=== PATIENT | female | born 1985 | race Caucasian/White ===

== ENCOUNTER → 2020-07-20 08:49 | Outpatient (BNVA) | payer MEDICAID, SELFPAY | PROVIDERS: PCP Nurse Practitioner Family; Visit Provider Surgery | DX: K43.2 Incisional hernia without obstruction or gangrene (principal) | CPT/HCPCS: 99202 ==

== ENCOUNTER 2020-07-26 06:13 | Day surgery (SDC) | payer MEDICAID, SELFPAY ==
--- NOTE | 2020-07-25 13:04 | P.CONAN_ITS ---
Documented by User: Jen Mcgregor 07/25/20 13:04 HPI - Anesthesia Eval Consult details Narrative: 35yo F for Left Incisional Hernia Repair with Mesh [facility] Active Problems Active Problems: All Active Problems (Updated 07/20/20 @ 09:12 by Kunal Reynolds MD) Incisional hernia (Acute) Past Medical History Medical History Dyslipidemia Headache Thyroid nodule Surgical History Surgical History delivery delivered H/O umbilical hernia repair (10/29/18) History of hysterectomy Hx of cholecystectomy Hx of right inguinal hernia repair (05/26/18) Hx of tonsillectomy Thyroid mass Social History Social History Alcohol intake: current Alcohol intake frequency: holidays/special occasions only Smoking Status: Current every day smoker Cigarettes Per Day: 2 Use of substances other than those prescribed or required for medical reasons: No Advance Directives: No Advance Directives Information Provided: Yes Meds Allergies Allergy/AdvReac Type Severity Reaction Status Date / Time epinephrine [EPINEPHRINE] Allergy Intermediate RASH, Verified 07/26/20 06:24 hives, tremors morphine [MORPHINE] Allergy Intermediate RASH Verified 07/26/20 06:24 oxycodone Allergy Unknown hives, Verified 07/26/20 06:24 itchy throat Home Medications Medication Instructions Recorded Confirmed Last Taken Type No Known Home Meds 07/20/20 07/26/20 Unknown History Exam Exam Date and Time: July 25, 2020 1304 Assessment and Plan Assessment Anesthesia Assessment: Chart Reviewed Documented by User: Rashmi Adam 07/26/20 07:22 PMFSH Past Medical History Medical History Dyslipidemia Headache Thyroid nodule Surgical History Surgical History delivery delivered H/O umbilical hernia repair (10/29/18) History of hysterectomy Hx of cholecystectomy Hx of right inguinal hernia repair (05/26/18) Hx of tonsillectomy Thyroid mass Social History Social History Alcohol intake: current Alcohol intake frequency: holidays/special occasions only Smoking Status: Current every day smoker Cigarettes Per Day: 2 Use of substances other than those prescribed or required for medical reasons: No Advance Directives: No Advance Directives Information Provided: Yes Meds Allergies Allergy/AdvReac Type Severity Reaction Status Date / Time epinephrine [EPINEPHRINE] Allergy Intermediate RASH, Verified 07/26/20 06:24 hives, tremors morphine [MORPHINE] Allergy Intermediate RASH Verified 07/26/20 06:24 oxycodone Allergy Unknown hives, Verified 07/26/20 06:24 itchy throat Home Medications Medication Instructions Recorded Confirmed Last Taken Type No Known Home Meds 07/20/20 07/26/20 Unknown History Exam Airway Mallampati Class: II TM Dist: >3cm Neck ROM: Full Assessment and Plan Assessment Anesthesia Assessment: Anesthesia Plan Discussed and Chart Reviewed Final Anesthetic Review NPO: Yes ASA Class: II Final Preanesthetic Review: No Changes in Pt Med Stat, Meds/Allgs Chart Reviewed, Consent Obtained/Reviewed and Anes Risks/Benef Reviewed Patient Risk: Low Procedure Risk: Low Assessment/Block/Sedation in SS: Assess/Block/Sedation-SS Anesthetic Plan Anesthetic Plan: GA Disposition: Standard PACU
[2020-07-26] VITALS (13 sets, daily range): BP systolic 90–119; BP diastolic 53–86; PULSE 57–85; RESP 12–16; TEMP 36.1–36.4; O2SAT 95–99; BMI 29.9
[2020-07-26] MEDS: Lactated Ringers 1,000 ML 100 ML IVCONT (06:38)
--- NOTE | 2020-07-26 07:22 | MHC.SHP ---
Pre-Procedural Eval Section A The patient is an INPATIENT: No Changes since office visit: Yes Patient answered all questions; No Cold of Flu in the past 2 weeks, No New Medical Problems and No Changes in Medication The History & Physical has been completed within 30 days and I have reviewed it.: Yes Section B Chief Complaint: Incisional hernia Allergies: Allergies Allergy/AdvReac Type Severity Reaction Status Date / Time epinephrine [EPINEPHRINE] Allergy Intermediate RASH, Verified 07/26/20 06:24 hives, tremors morphine [MORPHINE] Allergy Intermediate RASH Verified 07/26/20 06:24 oxycodone Allergy Unknown hives, Verified 07/26/20 06:24 itchy throat Plan Diagnosis/Plan: Unchanged I have reviewed the history and physical and performed a pertinent physical examination on my patient. No changes have occurred unless specified.
--- NOTE | 2020-07-26 08:07 | P.OP_ITS ---
Operative Note Operative Note Date of Service: 07/26/20 Narrative: Preoperative diagnosis: Incisional hernia left lower quadrant Postoperative diagnosis: Endometrial implant left lower quadrant Procedure: Excision of endometrial implant left lower quadrant Surgeon: Kunal Reynolds MD [employer]ight: Emy Padilla PA-C Anesthesia: General LMA Indications for procedure: 35-year-old female presenting with a painful lump in the left lower quadrant just above her section incision. She has a previous history of a right lower quadrant incisional hernia in this is located in a mirror image. Operative findings: Hard mass located just above the muscle and fascia me asuring approximately 2.5 cm in diameter. Findings suggestive of a endometrial implant. Specimen: Abdominal wall mass left lower quadrant Estimated blood loss: 2 mL Complications: None Procedure details: Patient was brought to the OR placed in a supine position. After administering general anesthesia the patient's abdomen was prepped with ChloraPrep and draped in a sterile fashion. A surgical time-out was called the consent confirmed. Patient received preoperative antibiotics and Venodyne boots were in place. Local anesthesia consisting of 0.5% Sensorcaine without epinephrine was infiltrated in the left lower quadrant directly over the palpable mass. Transverse incision was then created measuring approximately 8 cm carried down through subcutaneous tissue up to the palpable mass. This was immediately determined to be abdominal wall mass rather than hernia. Electrocautery was then used to widely excise the mass to assure complete removal. The mass was then excised off the muscle fascia without opening the fascia. Specimen was then sent to pathology for further examination. The incision was then irrigated thoroughly with sterile water. This was then suctioned dry. Oumou's fascia and dermis reapproximated using interrupted 3-0 Polysorb sutures. Skin was then closed using a running subcuticular 4 0 Polysorb suture. Steri-Strips and Tegaderm were then applied. The patient tolerated the procedure well. Sponge, instrument, needle counts reported as correct. The patient was transferred to PACU in stable condition.
[2020-07-26] MEDS: fentaNYL citrate/PF 100 MCG/2 ML VIAL 50 MCG IVPUSH (08:19)
[2020-07-26] MEDS: ondansetron HCL 4 MG/2 ML VIAL IVPUSH (08:31)
[2020-07-26] MEDS: HYDROcodone Bit/Acetam 5/325 TABLET 1 TAB PO (08:55)
== END 2020-07-26 12:37 | disposition home or self-care (01) ==
PROVIDERS: PCP Family Medicine; Visit Provider Surgery
PROC: (CPT 22902; principal; 2020-07-26 07:30)
DX: R19.04 Left lower quadrant abdominal swelling, mass and lump (principal); N80.8 Other endometriosis; Z87.19 Personal history of other diseases of the digestive system; Z98.891 History of uterine scar from previous surgery; Z90.49 Acquired absence of other specified parts of digestive tract; Z79.899 Other long term (current) drug therapy; Z88.8 Allergy status to other drugs, medicaments and biological substances; F17.210 Nicotine dependence, cigarettes, uncomplicated
CPT/HCPCS: 22902; 88307; J0690; J1100; J1885; J2250; J2405; J3010

== ENCOUNTER → 2020-08-03 11:31 | Outpatient (BNVA) | payer MEDICAID, SELFPAY | PROVIDERS: PCP Family Medicine; Visit Provider Surgery | DX: N80.9 Endometriosis, unspecified (principal) | CPT/HCPCS: 99212 ==

== ENCOUNTER → 2020-09-06 09:07 | Outpatient (BNVA) | payer MEDICAID, SELFPAY | PROVIDERS: PCP Family Medicine; Visit Provider Surgery | DX: N80.9 Endometriosis, unspecified (principal) | CPT/HCPCS: 99212 ==

== ENCOUNTER 2020-09-20 14:35 | Outpatient (REF) | payer MEDICAID, SELFPAY ==
--- NOTE | ~2020-09-20 | US_ITS ---
EXAMINATION: US PELVIS, LIMITED/FOLLOW UP CLINICAL INFORMATION: Left lower quadrant palpable lump and pain. COMPARISON: None TECHNIQUE: Limited imaging to the left lower quadrant is performed. FINDINGS: Imaging to the palpable area left lower quadrant reveals a complex round/ovoid appearing heterogenous abnormality left lower quadrant measuring 2.3 x 2.4 x 1.6 cm. Findings suspicious of hematoma. US/US pelvic limited IMPRESSION: Well-defined round to oval lesion left lower quadrant most suspicious of a hematoma. It is unlikely to represent lymph node.
== END 2020-09-20 14:36 | disposition home or self-care (01) ==
LOC: HO.US 14:35
PROVIDERS: Visit Provider Surgery
DX: N80.9 Endometriosis, unspecified (principal)
CPT/HCPCS: 76857

== ENCOUNTER → 2020-09-25 12:43 | Outpatient (BNVA) | payer MEDICAID, SELFPAY | PROVIDERS: PCP Family Medicine; Referring Provider Family Medicine; Visit Provider Surgery | DX: L76.32 Postprocedural hematoma of skin and subcutaneous tissue following other procedure (principal) | CPT/HCPCS: 99212 ==